=== PATIENT | female | born 1995 | race Caucasian/White ===

== ENCOUNTER 2016-06-11 18:22 | Emergency (ER) | payer BC ==
[~2016-06-11 18:22] MED LIST: hydrOXYzine HCl 25 MG Tab PO ONE
[2016-06-11 18:25] VITALS: BP 137/86
--- NOTE | 2016-06-11 18:59 | EDM.PDOC ---
ED HPI GENERAL MEDICAL PROBLEM - General Chief Complaint: General Stated Complaint: general Time Seen by Provider: 06/11/16 18:46 Source of Information: Reports: Patient History Limitations: Reports: No limitations - History of Present Illness INITIAL COMMENTS - FREE TEXT/NARRATIVE: Exacerbation of depression does see [facility] in [place] and is taking medications as prescribed Wellbutrin 300 mg and Effexor 225 mg daily. Patient states tonight she felt anxious and her friend called law enforcement to come and have patient evaluated in ER. She states she currently is single and lives with her cat in [place]. She states she has a boyfriend in [place] who she feels is becoming more controlling. She states has known him for years since they were children. 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) - Related Data Allergies Allergy/AdvReac Type Severity Reaction Status Date / Time No Known Allergies Allergy Verified 06/11/16 18:26 Home Meds: Home Meds Docusate Sodium 100 mg PO BID 02/23/13 [History] Norgestimate-Ethinyl Estradiol [Norg-Ee 0.18-0.215-0.25/0.035] 1 each PO DAILY 02/23/13 [History] Omeprazole 20 mg PO DAILY 02/23/13 [History] buPROPion [buPROPion XL] 150 mg PO DAILY 03/10/15 [History] Cholecalciferol (Vitamin D3) [Vitamin D3] 1,000 unit PO DAILY 06/11/16 [History] Venlafaxine HCl [Venlafaxine ER] 3 tab PO DAILY 06/11/16 [History] Past Medical History HEENT History: Reports: Impaired vision Cardiovascular History: Reports: Other (see below) (anxiety and depression) Respiratory History: Reports: None Gastrointestinal History: Reports: Chronic constipation, GERD Genitourinary History: Reports: None LMP (Approximate): other (On OCP-placebo) Musculoskeletal History: Reports: None Neurological History: Reports: None Psychiatric History: Reports: Anxiety, Depression, Emotional problems, Learning disability, Panic attack, Suicidal ideation (No ideation at this time.). Denies : Suicide attempt Endocrine/Metabolic History: Reports: None Hematologic History: Reports: None Immunologic History: Reports: None - Past Surgical History HEENT Surgical History: Reports: Other (see below) Other HEENT Surgeries/Procedures: [place] teeth removal Social & Family History - Family History Psychiatric: Reports: Anxiety, Depression, Other (see below) (Grandfather maternal ETOH) Endocrine/Metabolic: Reports: None Hematologic: Reports: None Immunologic: Reports: None Dermatologic: Reports: None Oncologic: Reports: Breast, Skin - Tobacco Use Smoking Status *Q: Never Smoker Second Hand Smoke Exposure: Yes - Caffeine Use Caffeine Use: Reports: Coffee - Alcohol Use Alcohol Use History: Yes Alcohol Use Frequency: Rarely - Recreational Drug Use Recreational Drug Use: No - Sexual History Sexual History: Reports: Oral sex, Sexually active, Single partner, Vaginal intercourse, Other (see below) (OCP) - Living Situation & Occupation Living situation: Reports: single Occupation: employed ED ROS GENERAL - Review of Systems Review Of Systems: See Below Constitutional: Reports: no symptoms, fatigue HEENT: Reports: No symptoms Respiratory: Reports: Shortness of Breath Cardiovascular: Reports: No symptoms Endocrine: Reports: fatigue GI/Abdominal: Reports: No symptoms. Denies: Black stool, Bloody stool : Reports: no symptoms Musculoskeletal: Reports: no symptoms Skin: Reports: no symptoms Neurological: Reports: No Symptoms Psychiatric: Reports: Anxiety, Depression. Denies: Homicidal ideation, Suicidal ideation Immunologic: Reports: no symptoms ED EXAM, GENERAL - Physical Exam Exam: See Below Exam Limited By: No limitations General Appearance: alert, WD/WN, no apparent distress Eye Exam: bilateral eye: EOMI, PERRL Ears: normal external exam, normal canal Ear Exam: bilateral ear: auricle normal Nose: normal inspection, normal mucosa Throat/Mouth: Normal inspection Head: atraumatic, normocephalic Neck: normal inspection, supple, non-tender, full range of motion Respiratory/Chest: no respiratory distress, lungs clear, normal breath sounds, no accessory muscle use, chest non-tender Cardiovascular: normal peripheral pulses, regular rate, rhythm, no edema, no JVD GI/Abdominal: normal bowel sounds, soft, non tender (Female) Exam: Deferred Rectal (Female) Exam: Deferred Back Exam: full range of motion Extremities: normal inspection, normal range of motion Neurological: alert, oriented, CN II-XII intact, normal cognition, normal gait, normal reflexes, no motor/sensory deficits Psychiatric: normal affect, depressed mood, flat affect Skin Exam: Warm, Dry, Intact, Normal color, No rash Lymphatic: no adenopathy Course - Vital Signs Last Recorded V/S: Last Vital Signs Temp 36.4 C 06/11/16 18:23 Pulse 96 06/11/16 18:23 Resp 16 06/11/16 18:23 BP 137/86 06/11/16 18:23 Pulse Ox 96 06/11/16 18:23 Departure - Departure Time of Disposition: 19:34 Disposition: Home, Self-Care 01 Condition: good Clinical Impression: Anxiety Forms: ED Department Discharge MLP Sign Off - Signature Requirements MLP Sign Off: No - Problem List & Annotations (1) Anxiety SNOMED Code(s): 50278449 Code(s): F41.9 - ANXIETY DISORDER, UNSPECIFIED Status: Acute Current Visit: Yes - Assessment/Plan Assessment:: Anxiety secondary to stressors and exacerbation of Depression. Zung depression scale 58-moderate depression Plan: Discussed Zung scale and the use of NSRI and activation antidepressants. Encouraged to cease caffeiene use and utilize hydroxazine paomate 25 mg every 4- 6 hours prn anxiety. Advised BMT and psychotherapy-Exercise and diet- Adequate sleep patterns -Patient agrees in a NO HARM contract and is discharged in stable condition to F/U PCP for evaluation and Preventative care.
[2016-06-11] MEDS ORDERED: Take Home: hydrOXYzine HCl 25 MG Tab, 4 Tab Pack PO ONE (19:17)
== END 2016-06-11 19:53 | disposition home or self-care (01) ==
LOC: CC.ED 18:22
DX: F41.9 Anxiety disorder, unspecified (principal); K21.9 Gastro-esophageal reflux disease without esophagitis; F32.9 Major depressive disorder, single episode, unspecified; Z79.899 Other long term (current) drug therapy
CPT/HCPCS: 99283; A9270

== ENCOUNTER 2016-08-20 18:56 | Inpatient (IN) | payer BC ==
[2016-08-20] MEDS ORDERED: Sodium Chloride 0.9% 1,000 ML IV ONE (19:20)
[2016-08-20] MEDS ORDERED: Morphine 4 MG/ML Syringe IVPUSH ONE (19:22)
[2016-08-20] MEDS ORDERED: Ondansetron 4 MG/2 ML SDV IVPUSH STA (19:23)
--- NOTE | 2016-08-20 19:27 | EDM.PDOC ---
ED HPI GENERAL MEDICAL PROBLEM - General Chief Complaint: Abdominal Pain Stated Complaint: ABDOMINAL PAIN Time Seen by Provider: 08/20/16 18:59 Source of Information: Reports: Patient History Limitations: Reports: No Limitations - History of Present Illness INITIAL COMMENTS - FREE TEXT/NARRATIVE: This patient is a 20 year old female that presents to the ER. Patient reports that since last night having RLQ pain in her abdomen. Patient reports that the pain has become worse throughout the day today. Patient reports having nausea, fever, abd pain, diarrhea. Patient reports feeling generally weak, sweating, chills, general malaise. Patent is alert and oriented. Denies womack, dizziness, v, cp, soa, urinary changes. Onset Date: 08/19/16 Onset Time: 21:00 Duration: Day(s): (1) Location: Reports: Abdomen Quality: Reports: Sharp Severity: Moderate Improves with: Reports: None Worsens with: Reports: None Associated Symptoms: Reports: Diaphoresis, Fever/Chills, Loss of Appetite, Malaise, Nausea/Vomiting, Weakness. Denies: Confusion, Chest Pain, Cough, cough w sputum, Headaches, Rash, Seizure, Shortness of Breath, Syncope Left Abdominal Pain Score (Numeric/FACES): 8 Abdomen Pain Score (Numeric/FACES): 5 - Related Data Allergies Allergy/AdvReac Type Severity Reaction Status Date / Time No Known Allergies Allergy Verified 08/20/16 19:02 Home Meds: Home Meds Docusate Sodium 100 mg PO BID 02/23/13 [History] Norgestimate-Ethinyl Estradiol [Norg-Ee 0.18-0.215-0.25/0.035] 1 each PO DAILY 02/23/13 [History] Omeprazole 20 mg PO DAILY 02/23/13 [History] buPROPion [buPROPion XL] 150 mg PO DAILY 03/10/15 [History] Venlafaxine HCl [Venlafaxine ER] 3 tab PO DAILY 06/11/16 [History] Past Medical History HEENT History: Reports: Impaired Vision Cardiovascular History: Reports: Other (See Below) Respiratory History: Reports: None Gastrointestinal History: Reports: Chronic Constipation, GERD Genitourinary History: Reports: None Musculoskeletal History: Reports: None Neurological History: Reports: None Psychiatric History: Reports: Anxiety, Depression, Emotional Problems, Learning Disability, Panic Attack, Suicidal Ideation Endocrine/Metabolic History: Reports: None Hematologic History: Reports: None Immunologic History: Reports: None - Past Surgical History HEENT Surgical History: Reports: Oral Surgery Social & Family History - Family History Psychiatric: Reports: Anxiety, Depression, Other (See Below) Endocrine/Metabolic: Reports: None Hematologic: Reports: None Immunologic: Reports: None Dermatologic: Reports: None Oncologic: Reports: Breast, Skin - Tobacco Use Smoking Status *Q: Never Smoker Second Hand Smoke Exposure: Yes - Caffeine Use Caffeine Use: Reports: Coffee, Soda - Recreational Drug Use Recreational Drug Use: No - Sexual History Sexual History: Reports: Oral Sex, Sexually Active, Single Partner, Vaginal [place], Other (See Below) - Living Situation & Occupation Living situation: Reports: Single Occupation: Employed ED ROS GENERAL - Review of Systems Review Of Systems: See Below Constitutional: Reports: Fever, Chills, Malaise, Weakness (generally), Diaphoresis HEENT: Reports: No Symptoms Respiratory: Reports: No Symptoms Cardiovascular: Reports: No Symptoms Endocrine: Reports: No Symptoms GI/Abdominal: Reports: Abdominal Pain, Diarrhea, Nausea. Denies: Vomiting : Reports: No Symptoms Musculoskeletal: Reports: No Symptoms Skin: Reports: No Symptoms Neurological: Reports: No Symptoms Psychiatric: Reports: No Symptoms Hematologic/Lymphatic: Reports: No Symptoms Immunologic: Reports: No Symptoms ED EXAM, GI/ABD - Physical Exam Exam: See Below Exam Limited By: No Limitations General Appearance: Alert, WD/WN, No Apparent Distress, Anxious Eyes: Bilateral: Normal Appearance Ears: Normal External Exam, Normal Canal, Hearing Grossly Normal, Normal TMs Nose: Normal Inspection, Normal Mucosa, No Blood Throat/Mouth: Normal Inspection, Normal Lips, Normal Teeth, Normal Gums, Normal Oropharynx, Normal Voice, No Airway Compromise Head: Atraumatic, Normocephalic Neck: Normal Inspection, Supple, Non-Tender, Full Range of Motion Respiratory/Chest: No Respiratory Distress, Lungs Clear, Normal Breath Sounds, No Accessory Muscle Use Cardiovascular: Normal Peripheral Pulses, Regular Rate, Rhythm, No Edema, No Gallop, No JVD, No Murmur, No Rub GI/Abdominal: Normal Bowel Sounds, Soft, No Organomegaly, No Distention, No Abnormal Bruit, No Mass, Pelvis Stable, Tenderness (RLQ), Guarding (RLQ). No: Rebound, Rigidity Back Exam: Normal Inspection, Full Range of Motion. No: CVA Tenderness (L), CVA Tenderness (R) Extremities: Normal Inspection, Normal Range of Motion, Non-Tender, No Pedal Edema, Normal Capillary Refill Neurological: Alert, Oriented, Normal Cognition Psychiatric: Normal Mood, Anxious Skin Exam: Warm, Intact, Normal Color, No Rash, Diaphoretic Lymphatic: No Adenopathy Course - Vital Signs Last Recorded V/S: Last Vital Signs Temp 98.7 F 08/21/16 08:00 Pulse 93 08/21/16 08:00 Resp 20 08/21/16 08:00 BP 135/88 08/21/16 04:00 Pulse Ox 98 08/21/16 08:00 - Orders/Labs/Meds Orders: Active Orders 24 hr Category Date Time Status Patient Status [ADT] Routine ADT 08/20/16 22:54 Active Ambulate [RC] .PRN Care 08/20/16 22:54 Active Notify Provider Vital Signs [RC] .PRN Care 08/20/16 22:54 Active Oxygen Therapy [RC] .PRN Care 08/20/16 22:54 Active Vital Signs [RC] 0000,0400,0800,1200,1600,2000 Care 08/20/16 22:54 Active Abdomen Pelvis w Cont [CT] Stat Exams 08/20/16 19:51 Taken BASIC METABOLIC PANEL,BMP [CHEM] DAILY Lab 08/22/16 05:00 Ordered BASIC METABOLIC PANEL,BMP [CHEM] DAILY Lab 08/23/16 05:00 Ordered CBC WITH AUTO DIFF [HEME] DAILY Lab 08/22/16 05:00 Ordered CBC WITH AUTO DIFF [HEME] DAILY Lab 08/23/16 05:00 Ordered CULTURE BLOOD [BC] Stat Lab 08/20/16 22:54 Ordered CULTURE BLOOD [BC] Stat Lab 08/20/16 22:54 Received Acetaminophen [Tylenol] Med 08/20/16 22:54 Active 650 mg PO Q4H PRN Ibuprofen [Motrin] Med 08/20/16 22:54 Active 600 mg PO Q6H PRN Levofloxacin/Dextrose 5%-Water [Levaquin in D5W 500 MG/ Med 08/20/16 23:00 Active 100 ML] 500 mg Premix Bag 1 bag IV Q24H Morphine Med 08/20/16 22:54 Active 2 mg IVPUSH Q2H PRN Norgestimate-Ethinyl Estradiol [Norg-Ee 0.18-0.215-0.25 Med 08/21/16 08:00 Active /0.035] 1 each PO DAILY Ondansetron [Zofran] Med 08/20/16 22:54 Active 4 mg IV Q6H PRN Pantoprazole [ProTONIX] Med 08/21/16 07:00 Active 40 mg PO ACBREAKFAST Sodium Chloride 0.9% [Normal Saline] 1,000 ml Med 08/20/16 22:54 Active IV ASDIRECTED Venlafaxine [Effexor XR] Med 08/21/16 08:00 Active 225 mg PO DAILY buPROPion [Wellbutrin XL] Med 08/21/16 08:00 Active 150 mg PO DAILY Blood Culture x2 Reflex Set [OM.PC] Routine Oth 08/21/16 05:00 Ordered Resuscitation Status Routine Resus Stat 08/20/16 22:32 Ordered Medication Orders Acetaminophen (Tylenol) 650 mg PO Q4H PRN PRN Reason: Pain (Mild 1-3)/fever Bupropion HCl (Wellbutrin Xl) 150 mg PO DAILY [facility] Last Admin: 08/21/16 08:06 Dose: 150 mg Levofloxacin/Dextrose 500 mg/ (Premix) 100 mls @ 100 mls/hr IV Q24H [facility] Last Admin: 08/20/16 23:24 Dose: 100 mls/hr Sodium Chloride (Normal Saline) 1,000 mls @ 100 mls/hr IV ASDIRECTED [facility] Last Admin: 08/20/16 22:00 Dose: 100 mls/hr Metronidazole 500 mg/ Premix 100 mls @ 100 mls/hr IV Q8H [facility] Last Admin: 08/21/16 08:06 Dose: 100 mls/hr Ibuprofen (Motrin) 600 mg PO Q6H PRN PRN Reason: Pain (mild 1-3) Last Admin: 08/21/16 02:39 Dose: 600 mg Morphine Sulfate (Morphine) 2 mg IVPUSH Q2H PRN PRN Reason: Pain (severe 7-10) Last Admin: 08/20/16 23:31 Dose: 2 mg Norgestimate-Ethinyl Estradiol [Norg-Ee 0.18-0.215-0.25/0 Pt Own 1 each PO DAILY [facility] Last Admin: 08/21/16 08:07 Dose: Not Given Ondansetron HCl (Zofran) 4 mg IV Q6H PRN PRN Reason: Nausea/Vomiting Pantoprazole Sodium (Protonix) 40 mg PO ACBREAKFAST [facility] Last Admin: 08/21/16 06:05 Dose: 40 mg Venlafaxine HCl (Effexor Xr) 225 mg PO DAILY [facility] Last Admin: 08/21/16 08:06 Dose: 225 mg Labs: Laboratory Tests 08/20/16 08/20/16 08/20/16 Range/Units 19:10 19:19 19:19 WBC 13.4 H (5.0-10.0) 10^3/uL RBC 3.89 L (4.00-5.50) 10^6/uL Hgb 11.5 L (12.0-16.0) g/dL Hct 34.6 L (37.0-47.0) % MCV 88.9 (82.0-94.0) fL MCH 29.6 (27.0-32.0) pg MCHC 33.2 (33.0-38.0) g/dL RDW Coeff of Tien 12.5 (11.0-15.0) % Plt Count 179 (150-400) 10^3/uL Neut % (Auto) 88.8 H (35-85) % Lymph % (Auto) 5.8 L (10-55) % [place] % (Auto) 5.4 (0-16) % Eos % (Auto) 0 (0-5) % Baso % (Auto) 0 (0-3) % Neut # (Auto) 11.93 H (1.80-7.00) 10^3/uL Lymph # (Auto) 0.78 L (1.00-4.80) 10^3/uL [place] # (Auto) 0.72 (0.00-0.80) 10^3/uL Eos # (Auto) 0.00 (0.00-0.45) 10^3/uL Baso # (Auto) 0.00 10^3/uL Sodium 136 (136-145) mEq/L Potassium 3.4 L (3.5-5.0) mEq/L Chloride 100 (98-106) mEq/L Carbon Dioxide 24 (21-32) mmol/L BUN 7 (7-18) mg/dL Creatinine 0.7 (0.6-1.0) mg/dL Est Cr Clr Drug Dosing 109.78 mL/min Estimated GFR (MDRD) > 60 (>=60) mL/min Glucose 112 H D (75-99) mg/dL Calcium 9.1 (8.4-10.1) mg/dL Total Bilirubin 0.4 (0.0-1.0) mg/dL AST 12 L (15-37) U/L ALT 16 (12-78) U/L Alkaline Phosphatase 93 (46-116) U/L Total Protein 6.9 (6.4-8.2) g/dL Albumin 3.2 L (3.4-5.0) g/dL Amylase (25-115) U/L Urine Color Yellow (YELLOW) Urine Appearance Clear (CLEAR) Urine pH 6.0 (4.5-8.0) Ur Specific [place] 1.015 (1.003-1.020) Urine Protein 30 H (NEGATIVE) mg/dL Urine Glucose (UA) Negative (NEGATIVE) mg/dL Urine Ketones Trace H (NEGATIVE) mg/dL Urine Occult Blood Negative (NEGATIVE) Urine Nitrite Negative (NEGATIVE) Urine Bilirubin Negative (NEGATIVE) Urine Urobilinogen 0.2 (0.2-1.0) EU/dL Ur Leukocyte Esterase Negative (NEGATIVE) Urine RBC Not seen (0-5) /HPF Urine WBC Not seen (0-5) /HPF Urine HCG, Qual 08/20/16 08/20/16 Range/Units 19:19 19:40 WBC (5.0-10.0) 10^3/uL RBC (4.00-5.50) 10^6/uL Hgb (12.0-16.0) g/dL Hct (37.0-47.0) % MCV (82.0-94.0) fL MCH (27.0-32.0) pg MCHC (33.0-38.0) g/dL RDW Coeff of Tien (11.0-15.0) % Plt Count (150-400) 10^3/uL Neut % (Auto) (35-85) % Lymph % (Auto) (10-55) % [place] % (Auto) (0-16) % Eos % (Auto) (0-5) % Baso % (Auto) (0-3) % Neut # (Auto) (1.80-7.00) 10^3/uL Lymph # (Auto) (1.00-4.80) 10^3/uL [place] # (Auto) (0.00-0.80) 10^3/uL Eos # (Auto) (0.00-0.45) 10^3/uL Baso # (Auto) 10^3/uL Sodium (136-145) mEq/L Potassium (3.5-5.0) mEq/L Chloride (98-106) mEq/L Carbon Dioxide (21-32) mmol/L BUN (7-18) mg/dL Creatinine (0.6-1.0) mg/dL Est Cr Clr Drug Dosing mL/min Estimated GFR (MDRD) (>=60) mL/min Glucose (75-99) mg/dL Calcium (8.4-10.1) mg/dL Total Bilirubin (0.0-1.0) mg/dL AST (15-37) U/L ALT (12-78) U/L Alkaline Phosphatase (46-116) U/L Total Protein (6.4-8.2) g/dL Albumin (3.4-5.0) g/dL Amylase 39 (25-115) U/L Urine Color (YELLOW) Urine Appearance (CLEAR) Urine pH (4.5-8.0) Ur Specific [place] (1.003-1.020) Urine Protein (NEGATIVE) mg/dL Urine Glucose (UA) (NEGATIVE) mg/dL Urine Ketones (NEGATIVE) mg/dL Urine Occult Blood (NEGATIVE) Urine Nitrite (NEGATIVE) Urine Bilirubin (NEGATIVE) Urine Urobilinogen (0.2-1.0) EU/dL Ur Leukocyte Esterase (NEGATIVE) Urine RBC (0-5) /HPF Urine WBC (0-5) /HPF Urine HCG, Qual Negative Meds: Medications Generic Name Dose Route Start Last Admin Trade Name Freq PRN Reason Stop Dose Admin Acetaminophen 650 mg 08/20/16 22:54 Tylenol PO Q4H PRN Pain (Mild 1-3)/fever Bupropion HCl 150 mg 08/21/16 08:00 08/21/16 08:06 Wellbutrin Xl PO 150 mg DAILY [facility] Administration Levofloxacin/Dextrose 500 mg/ 100 mls @ 100 mls/hr 08/20/16 23:00 08/20/16 23 :24 Premix IV 100 mls/hr Q24H [facility] Administration Sodium Chloride 1,000 mls @ 100 mls/hr 08/20/16 22:54 08/20/16 22:00 Normal Saline IV 100 mls/hr ASDIRECTED [facility] Administration Metronidazole 500 mg/ Premix 100 mls @ 100 mls/hr 08/21/16 08:00 08/21/16 08: 06 IV 100 mls/hr Q8H [facility] Administration Ibuprofen 600 mg 08/20/16 22:54 08/21/16 02:39 Motrin PO 600 mg Q6H PRN Administration Pain (mild 1-3) Morphine Sulfate 2 mg 08/20/16 22:54 08/20/16 23:31 Morphine IVPUSH 2 mg Q2H PRN Administration Pain (severe 7-10) Norgestimate-Ethinyl 1 each 08/21/16 08:00 08/21/16 08:07 Estradiol [Norg-Ee PO Not Given 0.18-0.215-0.25/0 DAILY [facility] Pt Own Ondansetron HCl 4 mg 08/20/16 22:54 Zofran IV Q6H PRN Nausea/Vomiting Pantoprazole Sodium 40 mg 08/21/16 07:00 08/21/16 06:05 Protonix PO 40 mg ACBREAKFAST [facility] Administration Venlafaxine HCl 225 mg 08/21/16 08:00 08/21/16 08:06 Effexor Xr PO 225 mg DAILY [facility] Administration Discontinued Medications Generic Name Dose Route Start Last Admin Trade Name Freq PRN Reason Stop Dose Admin Sodium Chloride 1,000 mls @ 1,000 mls/hr 08/20/16 19:20 08/20/16 19:57 Normal Saline IV 08/20/16 20:19 1,000 mls/hr .BOLUS ONE Administration Sodium Chloride Confirm 08/20/16 22:08 08/20/16 23:23 Normal Saline Administered 08/20/16 22:09 Not Given Dose 1,000 mls @ as directed .ROUTE .STK-MED ONE Metronidazole 500 mg/ Premix 100 mls @ 100 mls/hr 08/20/16 23:00 08/21/16 00: 22 IV 100 mls/hr Q8H [facility] Administration Iopamidol 100 ml 08/20/16 19:58 08/20/16 20:04 Isovue-300 (61%) IVPUSH 08/20/16 19:59 100 ml ONETIME ONE Administration Morphine Sulfate 4 mg 08/20/16 19:22 08/20/16 19:48 Morphine IVPUSH 08/20/16 19:23 4 mg ONETIME ONE Administration Ondansetron HCl 4 mg 08/20/16 19:23 08/20/16 19:47 Zofran IVPUSH 08/20/16 19:24 4 mg NOW STA Administration - Radiology Interpretation Free Text/Narrative:: Abd/Pelvis CT with contrast: Discussed with radiologist: Infectious Colititis, possible Chrons, but appears infectious. Appendix is normal. - Re-Assessments/Exams Free Text/Narrative Re-Assessment/Exam: 08/20/16 22:08 With this patient having colitis confirmed by CT as infecitous, leukocytosis, fever, and abdominal pain I will admit this patient. Departure - Departure Time of Disposition: 22:07 Disposition: Admitted As Inpatient 65 Condition: fair Clinical Impression: Colitis Abdominal pain Qualifiers: Abdominal location: right lower quadrant Qualified Code(s): R10.31 - Right lower quadrant pain - Discharge Information - My Orders Last 24 Hours: My Active Orders 08/20/16 19:51 Abdomen Pelvis w Cont [CT] Stat 08/20/16 22:32 Resuscitation Status Routine 08/20/16 22:54 Patient Status [ADT] Routine Ambulate [RC] .PRN Notify Provider Vital Signs [RC] .PRN Oxygen Therapy [RC] .PRN Vital Signs [RC] 0000,0400,0800,1200,1600,2000 CULTURE BLOOD [BC] Stat CULTURE BLOOD [BC] Stat Acetaminophen [Tylenol] 650 mg PO Q4H PRN Ibuprofen [Motrin] 600 mg PO Q6H PRN Morphine 2 mg IVPUSH Q2H PRN Ondansetron [Zofran] 4 mg IV Q6H PRN Sodium Chloride 0.9% [Normal Saline] 1,000 ml IV ASDIRECTED 08/20/16 23:00 Levofloxacin/Dextrose 5%-Water [Levaquin in D5W 500 MG/100 ML] 500 mg Premix Bag 1 bag IV Q24H 08/21/16 05:00 Blood Culture x2 Reflex Set [OM.PC] Routine 08/21/16 07:00 Pantoprazole [ProTONIX] 40 mg PO ACBREAKFAST 08/21/16 08:00 Norgestimate-Ethinyl Estradiol [Norg-Ee 0.18-0.215-0.25/0.035] 1 each PO DAILY Venlafaxine [Effexor XR] 225 mg PO DAILY buPROPion [Wellbutrin XL] 150 mg PO DAILY 08/22/16 05:00 BASIC METABOLIC PANEL,BMP [CHEM] DAILY CBC WITH AUTO DIFF [HEME] DAILY 08/23/16 05:00 BASIC METABOLIC PANEL,BMP [CHEM] DAILY CBC WITH AUTO DIFF [HEME] DAILY - Assessment/Plan Last 24 Hours: My Active Orders 08/20/16 19:51 Abdomen Pelvis w Cont [CT] Stat 08/20/16 22:32 Resuscitation Status Routine 08/20/16 22:54 Patient Status [ADT] Routine Ambulate [RC] .PRN Notify Provider Vital Signs [RC] .PRN Oxygen Therapy [RC] .PRN Vital Signs [RC] 0000,0400,0800,1200,1600,2000 CULTURE BLOOD [BC] Stat CULTURE BLOOD [BC] Stat Acetaminophen [Tylenol] 650 mg PO Q4H PRN Ibuprofen [Motrin] 600 mg PO Q6H PRN Morphine 2 mg IVPUSH Q2H PRN Ondansetron [Zofran] 4 mg IV Q6H PRN Sodium Chloride 0.9% [Normal Saline] 1,000 ml IV ASDIRECTED 08/20/16 23:00 Levofloxacin/Dextrose 5%-Water [Levaquin in D5W 500 MG/100 ML] 500 mg Premix Bag 1 bag IV Q24H 08/21/16 05:00 Blood Culture x2 Reflex Set [OM.PC] Routine 08/21/16 07:00 Pantoprazole [ProTONIX] 40 mg PO ACBREAKFAST 08/21/16 08:00 Norgestimate-Ethinyl Estradiol [Norg-Ee 0.18-0.215-0.25/0.035] 1 each PO DAILY Venlafaxine [Effexor XR] 225 mg PO DAILY buPROPion [Wellbutrin XL] 150 mg PO DAILY 08/22/16 05:00 BASIC METABOLIC PANEL,BMP [CHEM] DAILY CBC WITH AUTO DIFF [HEME] DAILY 08/23/16 05:00 BASIC METABOLIC PANEL,BMP [CHEM] DAILY CBC WITH AUTO DIFF [HEME] DAILY Plan: PLEASE SEE RN NOTE FOR PFSH. PLEASE USE ER H&P ADMIT H&P.
[2016-08-20 19:40] LABS: CHLORIDE,CL 100 mEq/L (98-106); SODIUM,NA 136 mEq/L (136-145)
[2016-08-20] MEDS ORDERED: Iopamidol 612 MG/ML 100 ML Bottle IVPUSH ONE (19:58)
[2016-08-20] MEDS: Sodium Chloride 0.9% 1,000 ML IV SCH (22:00)
[2016-08-20] MEDS ORDERED: Sodium Chloride 0.9% 1,000 ML ONE (22:08)
[2016-08-20] MEDS ORDERED: Ibuprofen 200 MG Tab PO PRN (22:54)
[2016-08-20] MEDS ORDERED: Ondansetron 4 MG/2 ML SDV IV PRN (22:54)
[2016-08-20] MEDS ORDERED: Morphine 2 MG/ML Syringe IVPUSH PRN (22:54)
[2016-08-20] MEDS ORDERED: Acetaminophen 325 MG Tab PO PRN (22:54)
[2016-08-20] MEDS ORDERED: metroNIDAZOLE/Normal Saline 500 MG in Premix Bag 1 BAG IV SCH (23:00)
[2016-08-20] MEDS: Levofloxacin/Dextrose 5%-Water 500 MG in Premix Bag 1 BAG IV SCH (23:24)
[2016-08-21] MEDS: Pantoprazole 40 MG Tab.CR PO SCH (06:05)
[2016-08-21 07:51] LABS: CHLORIDE,CL 106 mEq/L (98-106); SODIUM,NA 140 mEq/L (136-145)
[2016-08-21] MEDS: Venlafaxine 75 MG Cap.ER PO SCH (08:06)
[2016-08-21] MEDS: buPROPion 150 MG Tab.ER PO SCH (08:06)
[2016-08-21] MEDS: metroNIDAZOLE/Normal Saline 500 MG in Premix Bag 1 BAG IV SCH ×2 (08:06→16:24)
[2016-08-21] MEDS: NORGESTIMATE ETHINYL ESTRADIOL PO SCH (08:07)
--- NOTE | 2016-08-21 08:39 | PCM.PN ---
- General Info Date of Service: 08/21/16 Admission Dx/Problem (Free Text): Colitiis Functional Status: Reports: tolerating diet, ambulating, urinating. Denies: pain controlled - Review of Systems General: Reports: Fever, Weakness, Fatigue HEENT: Reports: no symptoms Pulmonary: Reports: no symptoms Cardiovascular: Reports: No Symptoms Gastrointestinal: Reports: Abdominal pain, Diarrhea, Nausea. Denies: Hematochezia, Melena, Vomiting Genitourinary: Reports: no symptoms Musculoskeletal: Reports: no symptoms Skin: Reports: no symptoms Neurological: Reports: No Symptoms Psychiatric: Reports: no symptoms - Patient Data Vitals - most recent: Last Vital Signs Temp 98.7 F 08/21/16 08:00 Pulse 93 08/21/16 08:00 Resp 20 08/21/16 08:00 BP 135/88 08/21/16 04:00 Pulse Ox 98 08/21/16 08:00 Weight - most recent: 144 lb 8 oz Lab Results last 24 hrs: Laboratory Results - last 24 hr 08/21/16 08/21/16 Range/Units 05:00 05:00 WBC 10.0 (5.0-10.0) 10^3/uL RBC 3.48 L (4.00-5.50) 10^6/uL Hgb 10.3 L (12.0-16.0) g/dL Hct 32.0 L (37.0-47.0) % MCV 92.0 (82.0-94.0) fL MCH 29.6 (27.0-32.0) pg MCHC 32.2 L (33.0-38.0) g/dL RDW Coeff of Tien 12.5 (11.0-15.0) % Plt Count 152 (150-400) 10^3/uL Neut % (Auto) 84.2 (35-85) % Lymph % (Auto) 9.0 L (10-55) % [place] % (Auto) 6.8 (0-16) % Eos % (Auto) 0 (0-5) % Baso % (Auto) 0 (0-3) % Neut # (Auto) 8.39 H (1.80-7.00) 10^3/uL Lymph # (Auto) 0.90 L (1.00-4.80) 10^3/uL [place] # (Auto) 0.68 (0.00-0.80) 10^3/uL Eos # (Auto) 0.00 (0.00-0.45) 10^3/uL Baso # (Auto) 0.00 10^3/uL Sodium 140 (136-145) mEq/L Potassium 3.4 L (3.5-5.0) mEq/L Chloride 106 (98-106) mEq/L Carbon Dioxide 26 (21-32) mmol/L BUN 6 L (7-18) mg/dL Creatinine 0.7 (0.6-1.0) mg/dL Est Cr Clr Drug Dosing 109.78 mL/min Estimated GFR (MDRD) > 60 (>=60) mL/min Glucose 90 (75-99) mg/dL Calcium 8.3 L (8.4-10.1) mg/dL Med Orders - Current: Current Medications Acetaminophen (Tylenol) 650 mg PO Q4H PRN PRN Reason: Pain (Mild 1-3)/fever Bupropion HCl (Wellbutrin Xl) 150 mg PO DAILY [facility] Last Admin: 08/21/16 08:06 Dose: 150 mg Levofloxacin/Dextrose 500 mg/ (Premix) 100 mls @ 100 mls/hr IV Q24H [facility] Last Admin: 08/20/16 23:24 Dose: 100 mls/hr Sodium Chloride (Normal Saline) 1,000 mls @ 100 mls/hr IV ASDIRECTED [facility] Last Admin: 08/20/16 22:00 Dose: 100 mls/hr Metronidazole 500 mg/ Premix 100 mls @ 100 mls/hr IV Q8H [facility] Last Admin: 08/21/16 08:06 Dose: 100 mls/hr Ibuprofen (Motrin) 600 mg PO Q6H PRN PRN Reason: Pain (mild 1-3) Last Admin: 08/21/16 02:39 Dose: 600 mg Morphine Sulfate (Morphine) 2 mg IVPUSH Q2H PRN PRN Reason: Pain (severe 7-10) Last Admin: 08/20/16 23:31 Dose: 2 mg Norgestimate-Ethinyl Estradiol [Norg-Ee 0.18-0.215-0.25/0 Pt Own 1 each PO DAILY [facility] Last Admin: 08/21/16 08:07 Dose: Not Given Ondansetron HCl (Zofran) 4 mg IV Q6H PRN PRN Reason: Nausea/Vomiting Pantoprazole Sodium (Protonix) 40 mg PO ACBREAKFAST [facility] Last Admin: 08/21/16 06:05 Dose: 40 mg Venlafaxine HCl (Effexor Xr) 225 mg PO DAILY [facility] Last Admin: 08/21/16 08:06 Dose: 225 mg Discontinued Medications Sodium Chloride (Normal Saline) 1,000 mls @ 1,000 mls/hr IV .BOLUS ONE Stop: 08/20/16 20:19 Last Admin: 08/20/16 19:57 Dose: 1,000 mls/hr Sodium Chloride (Normal Saline) Confirm Administered Dose 1,000 mls @ as directed .ROUTE .STK-MED ONE Stop: 08/20/16 22:09 Last Admin: 08/20/16 23:23 Dose: Not Given Metronidazole 500 mg/ Premix 100 mls @ 100 mls/hr IV Q8H [facility] Last Admin: 08/21/16 00:22 Dose: 100 mls/hr Iopamidol (Isovue-300 (61%)) 100 ml IVPUSH ONETIME ONE Stop: 08/20/16 19:59 Last Admin: 08/20/16 20:04 Dose: 100 ml Morphine Sulfate (Morphine) 4 mg IVPUSH ONETIME ONE Stop: 08/20/16 19:23 Last Admin: 08/20/16 19:48 Dose: 4 mg Ondansetron HCl (Zofran) 4 mg IVPUSH NOW STA Stop: 08/20/16 19:24 Last Admin: 08/20/16 19:47 Dose: 4 mg - Exam General: alert, oriented HEENT: Mucous membr. moist/pink Neck: supple Lungs: Clear to auscultation, Normal respiratory effort Cardiovascular: Regular Rate, Regular Rhythm Abdomen: bowel sounds present, soft, guarding, tenderness (RL!) Extremities: no edema Skin: warm, dry Neurological: no new focal deficit Psy/Mental Status: alert, normal affect, normal mood - Problem List & Annotations (1) Abdominal pain SNOMED Code(s): 08087798 Code(s): R10.9 - UNSPECIFIED ABDOMINAL PAIN Status: Acute Priority: High Current Visit: Yes Qualifiers: Abdominal location: right lower quadrant Qualified Code(s): R10.31 - Right lower quadrant pain (2) Colitis SNOMED Code(s): 13111675 Code(s): K52.9 - NONINFECTIVE GASTROENTERITIS AND COLITIS, UNSPECIFIED Status: Acute Priority: High Current Visit: Yes - Problem List Review Problem List Initiated/Reviewed/Updated: Yes - Assessment Assessment:: RLQ Colitis - Plan Plan:: Patient continues to have pain in her RLQ. She states does have nausea with dry heaves, no further vomiting. Had a loose stool during the night, no blood. Did spike a fever of 101.4 during the night. Afebrile this am. Labs improved this am, WBC 10.0. Electrolytes fairly normal. Will continue with IV antibiotics, fluids, and pain control. Reevaluate in am.
[2016-08-21] MEDS ORDERED: Acetaminophen/HYDROcodone 325-5 MG Tab PO PRN (10:11)
[2016-08-21] MEDS: Sodium Chloride 0.9% 1,000 ML IV SCH ×2 (10:38→21:43)
[2016-08-21] MEDS: Levofloxacin/Dextrose 5%-Water 500 MG in Premix Bag 1 BAG IV SCH (22:42)
[2016-08-22] MEDS: metroNIDAZOLE/Normal Saline 500 MG in Premix Bag 1 BAG IV SCH ×2 (00:01→07:56)
[2016-08-22] MEDS: Pantoprazole 40 MG Tab.CR PO SCH (06:51)
[2016-08-22 07:46] LABS: CHLORIDE,CL 108 mEq/L (98-106); SODIUM,NA 142 mEq/L (136-145)
[2016-08-22] MEDS: Venlafaxine 75 MG Cap.ER PO SCH (07:56)
[2016-08-22] MEDS: buPROPion 150 MG Tab.ER PO SCH (07:56)
[2016-08-22] MEDS: NORGESTIMATE ETHINYL ESTRADIOL PO SCH (07:57)
[2016-08-22 13:03] VITALS: BP 126/71
--- NOTE | 2016-08-23 21:47 | PCM.DCSUM1 ---
Discharge Summary - Hospital Course Free Text/Narrative:: Patient was admitted from ER after presenting with increased abdominal pain especially in the RLQ. Patient had been experiencing loose stools prior to admission. Had not noted blood in her stools. Nausea with dry heaves. Did have an elevated WBC at 13.4. CT scan was done which did show colitis. Admitted for IV fluids and antibiotics. Kept on clear liquids. - Discharge Data Discharge Date: 08/23/16 Discharge Disposition: Home, Self-Care 01 Condition: Good - Discharge Diagnosis/Problem(s) (1) Abdominal pain SNOMED Code(s): 03753213 ICD Code: R10.9 - UNSPECIFIED ABDOMINAL PAIN Status: Acute Priority: High Qualifiers: Qualified Code(s): R10.31 - Right lower quadrant pain (2) Colitis SNOMED Code(s): 85327358 ICD Code: K52.9 - NONINFECTIVE GASTROENTERITIS AND COLITIS, UNSPECIFIED Status: Acute Priority: High - Patient Summary/Data Complications: none Hospital Course: Patient has done well through hospitalization with slow improvement of her status. She did spike a fever during the night on day 1, complained of pain and nausea. Did require morphine for first 24 hours due to pain. Tolerated clear liquids. Was able to slowly advance diet to regular and tolerated well. WBC did return to normal on day 2, CRP at 17.8. Less abdominal pain, less guarding by discharge day. Patient did not have any blood in her stools, no loose stools for 24 hours prior to discharge. Patient does have a history of iron deficiency anemia, currently not taking her iron for this. Her hemoglobin did drop to 9.5 so will follow this closely after discharge. - Patient Instructions Diet: Usual Diet as Tolerated Activity: As Tolerated Notify Provider of: Fever, Increased Pain, Nausea and/or Vomiting - Discharge Plan Prescriptions/Med Rec: Hydrocodone/Acetaminophen [[place] 5-325 Tablet] 1 each PO Q6H PRN #10 tablet PRN Reason: Pain Home Medications: Home Meds Docusate Sodium 100 mg PO BID 02/23/13 [History] Norgestimate-Ethinyl Estradiol [Norg-Ee 0.18-0.215-0.25/0.035] 1 each PO DAILY 02/23/13 [History] Omeprazole 20 mg PO DAILY 02/23/13 [History] buPROPion [buPROPion XL] 150 mg PO DAILY 03/10/15 [History] Venlafaxine HCl [Venlafaxine ER] 3 tab PO DAILY 06/11/16 [History] Hydrocodone/Acetaminophen [[place] 5-325 Tablet] 1 each PO Q6H PRN #10 tablet [Rx] Forms: ED Department Discharge Referrals: Yana Chapman PA [Family Provider] - (Follow up in 2 weeks for recheck) - Discharge Summary/Plan Comment DC Time >30 min.: No Discharge Summary/Plan Comment: Discharge home. Push fluids. Follow up in one week. If continues to have ongoing pain, diarrhea or any bleeding, may proceed with a colonoscopy. - General Info Date of Service: 08/24/16 Admission Dx/Problem (Free Text: Colitiis Functional Status: Reports: pain controlled, tolerating diet, ambulating - Review of Systems General: Denies: Fever, Weakness, Fatigue HEENT: Reports: no symptoms Pulmonary: Reports: no symptoms Cardiovascular: Reports: No Symptoms Gastrointestinal: Reports: Abdominal pain. Denies: Diarrhea, Nausea, Vomiting Genitourinary: Reports: no symptoms Musculoskeletal: Reports: no symptoms Skin: Reports: no symptoms Neurological: Reports: No Symptoms - Patient Data Vitals - Most Recent: Last Vital Signs Temp 97 F 08/22/16 12:00 Pulse 87 08/22/16 12:00 Resp 16 08/22/16 12:00 BP 126/71 08/22/16 12:00 Pulse Ox 99 08/22/16 12:00 Weight - Most Recent: 144 lb 8 oz [facility] Results - Last 24 hrs: Microbiology 08/21/16 08:27 Aerobic Blood Culture - Preliminary Blood - Venous NO GROWTH AFTER 2 DAYS Anaerobic Blood Culture - Preliminary NO GROWTH AFTER 2 DAYS Med Orders - Current: Current Medications Discontinued Medications Acetaminophen (Tylenol) 650 mg PO Q4H PRN PRN Reason: Pain (Mild 1-3)/fever Last Admin: 08/21/16 20:17 Dose: 650 mg Hydrocodone Bitart/Acetaminophen ([place] 325-5 Mg) 1 tab PO Q4H PRN PRN Reason: Pain Last Admin: 08/21/16 10:39 Dose: 1 tab Bupropion HCl (Wellbutrin Xl) 150 mg PO DAILY [facility] Last Admin: 08/22/16 07:56 Dose: 150 mg Sodium Chloride (Normal Saline) 1,000 mls @ 1,000 mls/hr IV .BOLUS ONE Stop: 08/20/16 20:19 Last Admin: 08/20/16 19:57 Dose: 1,000 mls/hr Sodium Chloride (Normal Saline) Confirm Administered Dose 1,000 mls @ as directed .ROUTE .STK-MED ONE Stop: 08/20/16 22:09 Last Admin: 08/20/16 23:23 Dose: Not Given Levofloxacin/Dextrose 500 mg/ (Premix) 100 mls @ 100 mls/hr IV Q24H [facility] Last Admin: 08/21/16 22:42 Dose: 100 mls/hr Sodium Chloride (Normal Saline) 1,000 mls @ 100 mls/hr IV ASDIRECTED [facility] Last Admin: 08/21/16 21:43 Dose: 100 mls/hr Metronidazole 500 mg/ Premix 100 mls @ 100 mls/hr IV Q8H [facility] Last Admin: 08/21/16 00:22 Dose: 100 mls/hr Metronidazole 500 mg/ Premix 100 mls @ 100 mls/hr IV Q8H [facility] Last Admin: 08/22/16 07:56 Dose: 100 mls/hr Ibuprofen (Motrin) 600 mg PO Q6H PRN PRN Reason: Pain (mild 1-3) Last Admin: 08/21/16 02:39 Dose: 600 mg Iopamidol (Isovue-300 (61%)) 100 ml IVPUSH ONETIME ONE Stop: 08/20/16 19:59 Last Admin: 08/20/16 20:04 Dose: 100 ml Morphine Sulfate (Morphine) 4 mg IVPUSH ONETIME ONE Stop: 08/20/16 19:23 Last Admin: 08/20/16 19:48 Dose: 4 mg Morphine Sulfate (Morphine) 2 mg IVPUSH Q2H PRN PRN Reason: Pain (severe 7-10) Last Admin: 08/20/16 23:31 Dose: 2 mg Norgestimate-Ethinyl Estradiol [Norg-Ee 0.18-0.215-0.25/0 Pt Own 1 each PO DAILY [facility] Last Admin: 08/22/16 07:57 Dose: Not Given Ondansetron HCl (Zofran) 4 mg IVPUSH NOW STA Stop: 08/20/16 19:24 Last Admin: 08/20/16 19:47 Dose: 4 mg Ondansetron HCl (Zofran) 4 mg IV Q6H PRN PRN Reason: Nausea/Vomiting Last Admin: 08/21/16 13:43 Dose: 4 mg Pantoprazole Sodium (Protonix) 40 mg PO ACBREAKFAST [facility] Last Admin: 08/22/16 06:51 Dose: 40 mg Venlafaxine HCl (Effexor Xr) 225 mg PO DAILY [facility] Last Admin: 08/22/16 07:56 Dose: 225 mg - Exam General: Reports: alert, oriented HEENT: Reports: Mucous membr. moist/pink Neck: Reports: supple Lungs: Reports: Clear to auscultation, Normal respiratory effort Cardiovascular: Reports: Regular Rate, Regular Rhythm Abdomen: Reports: bowel sounds present, soft, no tenderness Skin: Reports: warm, dry Neurological: Reports: no new focal deficit *Q Meaningful Use (DIS) - VTE *Q VTE Criteria *Q: - Stroke *Q Stroke Criteria *Q: - AMI *Q AMI Criteria *Q:
== END 2016-08-22 13:15 | disposition home or self-care (01) | DRG 249 ==
LOC: CC.ED 18:56 → CC.MS 22:00 → UNDOADMIN 22:00 → CC.MS 22:54
PROVIDERS: ADMIT Nurse Practitioner; ATTEND Family Medicine
DX: K52.9 Noninfective gastroenteritis and colitis, unspecified (principal); R10.31 Right lower quadrant pain; K21.9 Gastro-esophageal reflux disease without esophagitis; K59.09 Other constipation; F41.8 Other specified anxiety disorders; F81.9 Developmental disorder of scholastic skills, unspecified; Z79.899 Other long term (current) drug therapy
CPT/HCPCS: 36415; 74177; 80048; 80053; 81001; 81025; 82150; 85025; 86140; 87040; 96361; 96374; 96375; 99285; A9270-GY; J1956; J2270; J2405; J7030; Q9967

== ENCOUNTER 2018-07-06 14:45 | Emergency (ER) | payer BC ==
[2018-07-06] MEDS ORDERED: Ketorolac 10 MG Tab PO ONE (14:46)
[2018-07-06 15:00] VITALS: BP 138/90
--- NOTE | 2018-07-06 15:39 | EDM.PDOC ---
ED HPI GENERAL MEDICAL PROBLEM - General Chief Complaint: Trauma Stated Complaint: fell off horse, hit head, left knee pain Time Seen by Provider: 07/06/18 15:10 Source of Information: Reports: Patient, RN History Limitations: Reports: No Limitations - History of Present Illness INITIAL COMMENTS - FREE TEXT/NARRATIVE: Fell off horse yesterday and hit her left knee and the left side of her neck. She has been waling on it since and did go to work at the [employer] this AM and was able to finish her shift. She comes into the ER as she has been continued left knee and calf pain. Does have a small bruise noted on the left medial calf. No other swelling noted. Is able to flex without dfficulty but it does cause discomfort when fully extending but is able to. She denies any LOC at the time of the injury. GCS when I first saw the pt was 15. Onset Date: 07/05/18 Location: Reports: Lower Extremity, Left Improves with: Reports: Rest Worsens with: Reports: Movement Left Knee Pain Score (Numeric/FACES): 3 - Related Data Allergies Allergy/AdvReac Type Severity Reaction Status Date / Time No Known Allergies Allergy Verified 08/20/16 19:02 Home Meds: Home Meds Norgestimate-Ethinyl Estradiol [Norg-Ee 0.18-0.215-0.25/0.035] 1 each PO DAILY 02/23/13 [History] Omeprazole 20 mg PO DAILY 02/23/13 [History] buPROPion [buPROPion XL] 150 mg PO DAILY 03/10/15 [History] Venlafaxine HCl [Venlafaxine ER] 3 tab PO DAILY 06/11/16 [History] Lysine 500 mg PO DAILY 07/06/18 [History] busPIRone [Buspar] 10 mg PO BID 07/06/18 [History] Past Medical History HEENT History: Reports: Impaired Vision Cardiovascular History: Reports: Other (See Below) Respiratory History: Reports: None Gastrointestinal History: Reports: Chronic Constipation, GERD Genitourinary History: Reports: None Musculoskeletal History: Reports: None Neurological History: Reports: None Psychiatric History: Reports: Anxiety, Depression, Emotional Problems, Learning Disability, Panic Attack, Suicidal Ideation Endocrine/Metabolic History: Reports: None Hematologic History: Reports: None Immunologic History: Reports: None - Past Surgical History HEENT Surgical History: Reports: Oral Surgery Social & Family History - Family History Cardiac: Reports: Hypertension Psychiatric: Reports: Anxiety, Depression, Other (See Below) Endocrine/Metabolic: Reports: None Hematologic: Reports: None Immunologic: Reports: None Dermatologic: Reports: None Oncologic: Reports: Breast, Skin - Caffeine Use Caffeine Use: Reports: Coffee, Soda - Sexual History Sexual History: Reports: Oral Sex, Sexually Active, Single Partner, Vaginal [place], Other (See Below) - Living Situation & Occupation Living situation: Reports: Single Occupation: Employed Review of Systems - Review of Systems Review Of Systems: See Below Constitutional: Reports: No Symptoms Eyes: Reports: No Symptoms Ears: Reports: No Symptoms Nose: Reports: No Symptoms Mouth/Throat: Reports: No Symptoms Respiratory: Reports: No Symptoms Cardiovascular: Reports: No Symptoms GI/Abdominal: Reports: No Symptoms Musculoskeletal: Reports: Other (left leg pain.) Skin: Reports: Bruising (left leg) Neurological: Reports: No Symptoms ED EXAM, GENERAL - Physical Exam Exam: See Below Free Text/Narrative:: Airway is open breathing is regular without any difficulty. circulation is normal. No bleeding no deformities were noted exposed for the exam GCS is 15 Pt refuses IV start No CT head needed No lab is indicated due to minor injury to the leg Exam Limited By: No Limitations General Appearance: Alert, WD/WN, No Apparent Distress Eye Exam: Bilateral Eye: PERRL Ears: Normal External Exam, Normal Canal, Normal TMs Nose: Normal Inspection Throat/Mouth: Normal Inspection, Normal Oropharynx Head: Atraumatic, Normocephalic Neck: Normal Inspection, Supple, Non-Tender, Full Range of Motion Respiratory/Chest: No Respiratory Distress, Lungs Clear, Normal Breath Sounds Cardiovascular: Normal Peripheral Pulses, Regular Rate, Rhythm, No Edema GI/Abdominal: Normal Bowel Sounds, Soft, Non-Tender, Other (No tenderness with pelvic pressure. Pelvis is stable.) Back Exam: Normal Inspection, Full Range of Motion Extremities: Normal Inspection, Normal Range of Motion, Normal Capillary Refill Neurological: Alert, Oriented, CN II-XII Intact, Normal Cognition Course - Vital Signs Last Recorded V/S: Last Vital Signs Temp 97.5 F 07/06/18 14:54 Pulse 96 07/06/18 14:54 Resp 20 07/06/18 14:54 BP 138/90 07/06/18 14:54 Pulse Ox 97 04/27/19 14:54 - Orders/Labs/Meds Orders: Active Orders 24 hr Category Date Time Status Cervical Spine 2V or 3V [CR] Stat Exams 07/06/18 15:11 Taken Chest 2V [CR] Stat Exams 07/06/18 15:11 Taken Knee 1V or 2V Lt [CR] Stat Exams 07/06/18 15:11 Ordered Pelvis 1V or 2V [CR] Stat Exams 07/06/18 15:11 Taken Meds: Medications Discontinued Medications Generic Name Dose Route Start Last Admin Trade Name Glenn PRN Reason Stop Dose Admin Ketorolac Tromethamine 2 packet 07/06/18 15:40 Take Home: Ketorolac 10 Mg, 4 Tab Pack PO 07/06/18 15:41 ONETIME ONE - Re-Assessments/Exams Free Text/Narrative Re-Assessment/Exam: 07/06/18 15:53 Pt is discharged with myriam wrap and toradol as needed for discomfort. Will call if she wants to see PT on Sunday. GCS on discharge is 15. Departure - Departure Time of Disposition: 15:39 Disposition: Home, Self-Care 01 Condition: Good Clinical Impression: Fall from horse, Left knee pain - Discharge Information *PRESCRIPTION DRUG MONITORING PROGRAM REVIEWED*: Not Applicable *COPY OF PRESCRIPTION DRUG MONITORING REPORT IN PATIENT STANLEY: Not Applicable Forms: ED Department Discharge Additional Instructions: ketorolac 10 mg every 6-8 hours as needed for discomfort ice to leg as needed for any swelling If not better by sunday could set you up with Physical therapy May be up and around as tolerated and may return to work. - Problem List Review Problem List Initiated/Reviewed/Updated: Yes - My Orders Last 24 Hours: My Active Orders 07/06/18 15:11 Cervical Spine 2V or 3V [CR] Stat Chest 2V [CR] Stat Knee 1V or 2V Lt [CR] Stat Pelvis 1V or 2V [CR] Stat - Assessment/Plan Last 24 Hours: My Active Orders 07/06/18 15:11 Cervical Spine 2V or 3V [CR] Stat Chest 2V [CR] Stat Knee 1V or 2V Lt [CR] Stat Pelvis 1V or 2V [CR] Stat
[2018-07-06] MEDS ORDERED: Take Home: Ketorolac 10 MG Tab, 4 Tab Pack PO ONE (15:40)
== END 2018-07-06 15:55 | disposition home or self-care (01) ==
LOC: CC.ED 14:45
DX: M25.561 Pain in right knee (principal); M54.2 Cervicalgia; K21.9 Gastro-esophageal reflux disease without esophagitis; F41.9 Anxiety disorder, unspecified; F32.9 Major depressive disorder, single episode, unspecified; Z79.899 Other long term (current) drug therapy; Z98.890 Other specified postprocedural states; V80.010A Animal-rider injured by fall from or being thrown from horse in noncollision accident, initial encounter
CPT/HCPCS: 71046; 72040; 72170; 73560-LT; 99284-25; A9270-GY

== ENCOUNTER 2018-12-21 20:29 | Emergency (ER) | payer BC ==
[2018-12-21 20:35] VITALS: BP 138/87; PULSE 93
--- NOTE | 2018-12-21 20:48 | EDM.PDOC ---
ED HPI GENERAL MEDICAL PROBLEM - General Chief Complaint: General Stated Complaint: WILLETT, scratchy throat Time Seen by Provider: 12/21/18 20:37 Source of Information: Reports: Patient, EMS Notes Reviewed History Limitations: Reports: No Limitations - History of Present Illness INITIAL COMMENTS - FREE TEXT/NARRATIVE: a funny smell was detected in the apartment building, there was a concern for carbon monoxide problems. no cp or sob, no ENT sx. The fire department evaluated all of the apartment and there was no carbon monoxide found in any apartment. there were apartment what had several scentsy pots in use. c/o felt funny, sx have resolved Onset: Today, Sudden Quality: Denies: Ache Severity: Mild Improves with: Reports: None Worsens with: Reports: None Associated Symptoms: Reports: No Other Symptoms. Denies: Confusion, Cough, Fever/Chills, Nausea/Vomiting, Shortness of Breath Treatments [employer]: Reports: Other (see below) (none) - Related Data Allergies Allergy/AdvReac Type Severity Reaction Status Date / Time No Known Allergies Allergy Verified 12/21/18 20:43 Home Meds: Home Meds Norgestimate-Ethinyl Estradiol [Norg-Ee 0.18-0.215-0.25/0.035] 1 each PO DAILY 02/23/13 [History] Omeprazole 20 mg PO DAILY 02/23/13 [History] buPROPion [buPROPion XL] 150 mg PO DAILY 03/10/15 [History] Venlafaxine HCl [Venlafaxine ER] 3 tab PO DAILY 06/11/16 [History] Lysine 500 mg PO DAILY 07/06/18 [History] busPIRone [Buspar] 10 mg PO BID 07/06/18 [History] Past Medical History HEENT History: Reports: Impaired Vision Cardiovascular History: Reports: Other (See Below) Respiratory History: Reports: None Gastrointestinal History: Reports: Chronic Constipation, GERD Genitourinary History: Reports: None Musculoskeletal History: Reports: None Neurological History: Reports: None Psychiatric History: Reports: Anxiety, Depression, Emotional Problems, Learning Disability, Panic Attack, Suicidal Ideation Endocrine/Metabolic History: Reports: None Hematologic History: Reports: None Immunologic History: Reports: None - Past Surgical History HEENT Surgical History: Reports: Oral Surgery Social & Family History - Family History Cardiac: Reports: Hypertension Psychiatric: Reports: Anxiety, Depression, Other (See Below) Endocrine/Metabolic: Reports: None Hematologic: Reports: None Immunologic: Reports: None Dermatologic: Reports: None Oncologic: Reports: Breast, Skin - Caffeine Use Caffeine Use: Reports: Coffee, Soda - Sexual History Sexual History: Reports: Oral Sex, Sexually Active, Single Partner, Vaginal [place], Other (See Below) - Living Situation & Occupation Living situation: Reports: Single Occupation: Employed ED ROS GENERAL - Review of Systems Review Of Systems: See Below Constitutional: Reports: No Symptoms. Denies: Fever HEENT: Reports: No Symptoms. Denies: Rhinitis, Sinus Problem, Throat Pain, Throat Swelling Respiratory: Reports: No Symptoms. Denies: Shortness of Breath, Wheezing Cardiovascular: Reports: No Symptoms. Denies: Chest Pain GI/Abdominal: Reports: No Symptoms. Denies: Abdominal Pain, Nausea, Vomiting Musculoskeletal: Reports: No Symptoms Skin: Reports: No Symptoms. Denies: Rash Neurological: Reports: No Symptoms. Denies: Confusion, Dizziness, Headache Psychiatric: Reports: No Symptoms ED EXAM, GENERAL - Physical Exam Exam: See Below Exam Limited By: No Limitations General Appearance: Alert, WD/WN, No Apparent Distress Ears: Normal External Exam, Normal Canal, Hearing Grossly Normal, Normal TMs Nose: Normal Inspection, Normal Mucosa Throat/Mouth: Normal Inspection, Normal Lips, Normal Oropharynx, Normal Voice, No Airway Compromise Head: Atraumatic, Normocephalic Neck: Normal Inspection, Supple, Non-Tender, Full Range of Motion Respiratory/Chest: No Respiratory Distress, Lungs Clear, Normal Breath Sounds, No Accessory Muscle Use Cardiovascular: Normal Peripheral Pulses, Regular Rate, Rhythm, No Murmur Peripheral Pulses: 2+: Radial (L) GI/Abdominal: Soft, Non-Tender Back Exam: Normal Inspection, Full Range of Motion Extremities: Normal Inspection, Normal Range of Motion, Non-Tender, Normal Capillary Refill Neurological: Alert, Oriented, Normal Cognition, Normal Gait, No Motor/Sensory Deficits Psychiatric: Normal Affect, Normal Mood Skin Exam: Warm, Dry, Intact, Normal Color, No Rash Course - Vital Signs Last Recorded V/S: Last Vital Signs Temp 36.9 C 12/21/18 20:30 Pulse 93 12/21/18 20:30 Resp 18 12/21/18 20:30 BP 138/87 12/21/18 20:30 Pulse Ox 100 12/21/18 20:30 Departure - Departure Time of Disposition: 20:48 Disposition: Home, Self-Care 01 Condition: Good Clinical Impression: Well adult health check - Discharge Information *PRESCRIPTION DRUG MONITORING PROGRAM REVIEWED*: Not Applicable *COPY OF PRESCRIPTION DRUG MONITORING REPORT IN PATIENT [place]: Not Applicable Instructions: Preventive Care 18-39 Years, Female Forms: ED Department Discharge Additional Instructions: follow up as needed - Problem List & Annotations (1) Well adult health check SNOMED Code(s): 471826955, 674266631 Code(s): Z00.00 - ENCNTR FOR GENERAL ADULT MEDICAL EXAM W/O ABNORMAL FINDINGS Status: Acute Priority: Low - Problem List Review Problem List Initiated/Reviewed/Updated: Yes - Assessment/Plan Plan: as above
== END 2018-12-21 21:30 | disposition home or self-care (01) ==
LOC: CC.ED 20:29
DX: Z00.00 Encounter for general adult medical examination without abnormal findings (principal); F32.9 Major depressive disorder, single episode, unspecified; K21.9 Gastro-esophageal reflux disease without esophagitis; F41.9 Anxiety disorder, unspecified
CPT/HCPCS: 99283

== ENCOUNTER 2019-10-25 22:50 | Emergency (ER) | payer BC ==
[2019-10-25 23:13] VITALS: PULSE 82
--- NOTE | 2019-10-25 23:57 | EDM.PDOC ---
ED HPI GENERAL MEDICAL PROBLEM - General Chief Complaint: General Stated Complaint: cough SOB Time Seen by Provider: 10/25/19 23:30 Source of Information: Reports: Patient History Limitations: Reports: No Limitations - History of Present Illness INITIAL COMMENTS - FREE TEXT/NARRATIVE: This patient is a 24 year old female that presents to the ER. Patient reports that she works at [employer]. She reports that 3 weeks ago she was randomly testing for covid for work. She reports testing positive. She reports at that time she got her results she did have loss of taste and smell. She reports then gradually over the past 2 1/2 weeks she has developed shortness of breath, generally weak, and left lateral/anterior chest pain worse with big deep breaths. She reports she quarantined at boyfriends in [place] for 2 weeks and he tested positive as well. She reports returning back to work Sunday with these symptoms. She reports then today at 1:30pm today while at work, she suddenly had shortness of breath, and pain to the anterior/left chest that was worse than it had been. She reports then getting off work at 2pm, going home and then coughing a lot. She reports that she came to the ER tonight because of the coughing, pain, shortness of breath, and general weakness was worse. Onset: Today (Worse today started at 1:30pm) Onset Date: 10/04/19 Onset Time: 13:30 Duration: Week(s): (3), Getting Worse Location: Reports: Chest Quality: Reports: Ache Severity: Mild Improves with: Reports: None Worsens with: Reports: None Associated Symptoms: Reports: Chest Pain, Cough, Shortness of Breath, Weakness. Denies: Confusion, cough w sputum, Diaphoresis, Fever/Chills, Headaches, Loss of Appetite, Malaise, Nausea/Vomiting, Rash, Seizure, Syncope - Related Data Allergies Allergy/AdvReac Type Severity Reaction Status Date / Time No Known Allergies Allergy Verified 10/25/19 23:27 Home Meds: Home Meds Omeprazole 20 mg PO DAILY 02/23/13 [History] norgestimate-ethinyl estradioL [Norg-Ee 0.18-0.215-0.25/0.035] 1 each PO DAILY 02/23/13 [History] buPROPion [buPROPion XL] 150 mg PO DAILY 03/10/15 [History] Venlafaxine HCl [Venlafaxine ER] 3 tab PO DAILY 06/11/16 [History] Lysine 500 mg PO DAILY 07/06/18 [History] busPIRone [Buspar] 10 mg PO BID 07/06/18 [History] Past Medical History HEENT History: Reports: Impaired Vision Cardiovascular History: Reports: Other (See Below) Respiratory History: Reports: None Gastrointestinal History: Reports: Chronic Constipation, GERD Genitourinary History: Reports: None Musculoskeletal History: Reports: None Neurological History: Reports: None Psychiatric History: Reports: Anxiety, Depression, Emotional Problems, Learning Disability, Panic Attack, Suicidal Ideation Endocrine/Metabolic History: Reports: None Hematologic History: Reports: None Immunologic History: Reports: None - Past Surgical History HEENT Surgical History: Reports: Oral Surgery Social & Family History - Family History Family Medical History: Noncontributory Cardiac: Reports: Hypertension Psychiatric: Reports: Anxiety, Depression, Other (See Below) Endocrine/Metabolic: Reports: None Hematologic: Reports: None Immunologic: Reports: None Dermatologic: Reports: None Oncologic: Reports: Breast, Skin - Tobacco Use Smoking Status *Q: Never Smoker Second Hand Smoke Exposure: No - Caffeine Use Caffeine Use: Reports: Coffee, Soda - Sexual History Sexual History: Reports: Oral Sex, Sexually Active, Single Partner, Vaginal [place], Other (See Below) - Living Situation & Occupation Living situation: Reports: Single Occupation: Employed ED ROS GENERAL - Review of Systems Review Of Systems: See Below Constitutional: Reports: No Symptoms HEENT: Reports: No Symptoms Respiratory: Reports: Shortness of Breath, Pleuritic Chest Pain, Cough. Denies: Wheezing, Sputum, Hemoptysis Cardiovascular: Reports: Chest Pain. Denies: Dyspnea on Exertion, Edema, Lightheadedness, Palpitations, Syncope Endocrine: Reports: No Symptoms GI/Abdominal: Reports: Diarrhea. Denies: Abdominal Pain, Nausea, Vomiting : Reports: No Symptoms Musculoskeletal: Reports: No Symptoms Skin: Reports: No Symptoms Neurological: Reports: No Symptoms Psychiatric: Reports: No Symptoms Hematologic/Lymphatic: Reports: No Symptoms Immunologic: Reports: No Symptoms ED EXAM, GENERAL - Physical Exam Exam: See Below Exam Limited By: No Limitations General Appearance: Alert, WD/WN, No Apparent Distress Eye Exam: Bilateral Eye: Normal Inspection, PERRL Ears: Normal External Exam, Normal Canal, Hearing Grossly Normal, Normal TMs Ear Exam: Bilateral Ear: Auricle Normal, Canal Normal, TM normal Nose: Normal Inspection, Normal Mucosa, No Blood Throat/Mouth: Normal Inspection, Normal Lips, Normal Teeth, Normal Gums, Normal Oropharynx, Normal Voice, No Airway Compromise Head: Atraumatic, Normocephalic Neck: Normal Inspection, Supple, Non-Tender, Full Range of Motion Respiratory/Chest: No Respiratory Distress, Lungs Clear, Normal Breath Sounds, No Accessory Muscle Use, Other (left lateral/anterior chest wall tenderness with palpation and taking big deep breaths. ) Cardiovascular: Normal Peripheral Pulses, Regular Rate, Rhythm, No Edema, No Gallop, No JVD, No Murmur, No Rub Peripheral Pulses: 2+: Radial (L), Radial (R), Posterior Tibial (L), Posterior Tibial (R) GI/Abdominal: Soft, Non-Tender Back Exam: Normal Inspection, Full Range of Motion Extremities: Normal Inspection, Normal Range of Motion, Non-Tender, No Pedal Edema, Normal Capillary Refill Neurological: Alert, Oriented Psychiatric: Normal Affect, Normal Mood Skin Exam: Warm, Dry, Intact, Normal Color, No Rash Lymphatic: No Adenopathy Course - Vital Signs Last Recorded V/S: Last Vital Signs Temp 97.9 F 10/25/19 23:12 Pulse 82 10/25/19 23:12 Resp 18 10/25/19 23:12 BP Pulse Ox 98 10/25/19 23:12 - Orders/Labs/Meds Orders: Active Orders 24 hr Category Date Time Status Chest 2V [CR] Stat Exams 10/25/19 23:44 Ordered Labs: Laboratory Tests 10/25/19 10/25/19 10/25/19 Range/Units 23:05 23:55 23:55 WBC 5.8 (5.0-10.0) 10^3/uL RBC 3.86 L (4.00-5.50) 10^6/uL Hgb 11.3 L (12.0-16.0) g/dL Hct 33.6 L (37.0-47.0) % MCV 87.0 (82.0-94.0) fL MCH 29.3 (27.0-32.0) pg MCHC 33.6 (33.0-38.0) g/dL RDW Coeff of Tien 12.7 (11.0-15.0) % Plt Count 262 (150-400) 10^3/uL Neut % (Auto) 51.4 (35-85) % Lymph % (Auto) 38.1 (10-55) % [place] % (Auto) 7.6 (0-16) % Eos % (Auto) 2.7 (0-5) % Baso % (Auto) 0.2 (0-3) % Neut # (Auto) 2.99 (1.80-7.00) 10^3/uL Lymph # (Auto) 2.22 (1.00-4.80) 10^3/uL [place] # (Auto) 0.44 (0.00-0.80) 10^3/uL Eos # (Auto) 0.16 (0.00-0.45) 10^3/uL Baso # (Auto) 0.01 10^3/uL PT 9.9 (9.7-12.3) SEC INR 0.98 (0.92-1.18) D-Dimer, Quantitative 0.23 (0.00-0.50) Sodium (136-145) mEq/L Potassium (3.5-5.0) mEq/L Chloride (98-106) mEq/L Carbon Dioxide (21-32) mmol/L BUN (7-18) mg/dL Creatinine (0.6-1.0) mg/dL Est Cr Clr Drug Dosing mL/min Estimated GFR (MDRD) (>=60) mL/min Glucose (75-99) mg/dL Calcium (8.4-10.1) mg/dL Total Bilirubin (0.0-1.0) mg/dL AST (15-37) U/L ALT (12-78) U/L Alkaline Phosphatase (46-116) U/L Creatine Kinase (21-215) U/L Troponin I (0.00-0.06) ng/mL C-Reactive Protein (0.2-0.8) mg/dL Total Protein (6.4-8.2) g/dL Albumin (3.4-5.0) g/dL Amylase (25-115) U/L Lipase (73-393) U/L HCG, Qual COVID-19 ([facility]) Positive H (NEGATIVE) 10/25/19 10/25/19 Range/Units 23:55 23:55 WBC (5.0-10.0) 10^3/uL RBC (4.00-5.50) 10^6/uL Hgb (12.0-16.0) g/dL Hct (37.0-47.0) % MCV (82.0-94.0) fL MCH (27.0-32.0) pg MCHC (33.0-38.0) g/dL RDW Coeff of Tien (11.0-15.0) % Plt Count (150-400) 10^3/uL Neut % (Auto) (35-85) % Lymph % (Auto) (10-55) % [place] % (Auto) (0-16) % Eos % (Auto) (0-5) % Baso % (Auto) (0-3) % Neut # (Auto) (1.80-7.00) 10^3/uL Lymph # (Auto) (1.00-4.80) 10^3/uL [place] # (Auto) (0.00-0.80) 10^3/uL Eos # (Auto) (0.00-0.45) 10^3/uL Baso # (Auto) 10^3/uL PT (9.7-12.3) SEC INR (0.92-1.18) D-Dimer, Quantitative (0.00-0.50) Sodium 141 (136-145) mEq/L Potassium 3.4 L (3.5-5.0) mEq/L Chloride 106 (98-106) mEq/L Carbon Dioxide 26 (21-32) mmol/L BUN 8 (7-18) mg/dL Creatinine 0.7 (0.6-1.0) mg/dL Est Cr Clr Drug Dosing 106.09 mL/min Estimated GFR (MDRD) > 60 (>=60) mL/min Glucose 112 H D (75-99) mg/dL Calcium 8.8 (8.4-10.1) mg/dL Total Bilirubin 0.1 (0.0-1.0) mg/dL AST 10 L (15-37) U/L ALT 19 (12-78) U/L Alkaline Phosphatase 80 (46-116) U/L Creatine Kinase 56 (21-215) U/L Troponin I < 0.017 (0.00-0.06) ng/mL C-Reactive Protein 1.7 H (0.2-0.8) mg/dL Total Protein 6.9 (6.4-8.2) g/dL Albumin 3.5 (3.4-5.0) g/dL Amylase 48 (25-115) U/L Lipase 135 (73-393) U/L HCG, Qual Negative COVID-19 ([facility]) (NEGATIVE) - Radiology Interpretation Free Text/Narrative:: CXR: no acute findings - Re-Assessments/Exams Free Text/Narrative Re-Assessment/Exam: 10/26/19 00:20 I recommended the patient quarantine for 14 additional days due to not only the positive covid test, but that the patient found it emergent enough to present to the ER at 11pm at night for her symptoms. She had reported her symptoms were worse and she felt emergent enough to be seen for them. They had became worse abruptly today compared to the last 3 weeks she had her symptoms. Obviously, something had changed or was different to warrant this patient to make an Emergent visit to seek emergent care for her symptoms. The patient had been texting the health department during her visit here in the ER. They had instructed the patient she had already quarantined for her 14 days. The health department then called to speak to me. We discussed the positive covid test can be positive for a long time. However, we also discussed that the patient felt it was emergent enough to come in tonight with a change in her symptomology, therefore the recommendation for additional quarantine. 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 I then discussed this with the patient, I told her to followup with her PCP and the health department further. Patient is stable and will be discharged home. Departure - Departure Time of Disposition: 00:26 Disposition: Home, Self-Care 01 Condition: Fair Clinical Impression: COVID-19, Costochondritis, acute - Discharge Information *PRESCRIPTION DRUG MONITORING PROGRAM REVIEWED*: Not Applicable *COPY OF PRESCRIPTION DRUG MONITORING REPORT IN PATIENT [place]: Not Applicable Instructions: COVID-19 Frequently Asked Questions, COVID-19: How to Protect Yourself and Others - CDC, Costochondritis, Prevent the Spread of COVID-19 if You Are Sick - CDC Referrals: Yana Chapman PA [Primary Care Provider] - Forms: ED Department Discharge Additional Instructions: Followup with your primary care provider for followup and discussion when to return to work Followup with the health department to discuss when its appropriate to return to work Due to your NEW onset of symptoms TODAY: Requesting that you quarantine for 14 day starting today: Unless the health department or your PCP change this Increase fluid intake Tylenol or Motrin for pain Current recommendation from the ER: No work for 14 days, Home quarantine: Unless otherwise directed by health department or PCP Sepsis Event Note (ED) - Evaluation Sepsis Screening Result: No Definite Risk - Focused Exam Vital Signs: Vital Signs Temp Pulse Resp Pulse Ox 10/25/19 23:12 97.9 F 82 18 98 - My Orders Last 24 Hours: My Active Orders 10/25/19 23:44 Chest 2V [CR] Stat - Assessment/Plan Last 24 Hours: My Active Orders 10/25/19 23:44 Chest 2V [CR] Stat Plan: PLEASE SEE RN NOTE FOR PFSH
[2019-10-26 00:17] LABS: CHLORIDE,CL 106 mEq/L (98-106); SODIUM,NA 141 mEq/L (136-145)
== END 2019-10-26 01:00 | disposition home or self-care (01) ==
LOC: CC.ED 22:50
DX: U07.1 COVID-19 (principal); M94.0 Chondrocostal junction syndrome [Tietze]; K21.9 Gastro-esophageal reflux disease without esophagitis; F32.9 Major depressive disorder, single episode, unspecified; F41.0 Panic disorder [episodic paroxysmal anxiety]; Z79.899 Other long term (current) drug therapy
CPT/HCPCS: 36415; 71046; 80053; 82150; 82550; 83690; 84484; 84703; 85025; 85379; 85610; 86140; 99285-25; U0002